=== PATIENT | male | born 1940 | race Caucasian/White ===

== ENCOUNTER → 2016-07-20 | Outpatient (CLI) | payer OTHER ==
[~2016-07-20] MED LIST: ALLO300T PO; AMLO5TAB2 PO; AMOX125T PO; ATEN100T PO; ATOR80TA75 PO; CHOL10002 PO; CYAN1TAB29 PO; DOCU240C53 PO; FURO40TA6 PO; GABA300C10 PO; GLIP2.5T16 PO; METF10002 PO; NORT25CA PO; OMEG1CAP12 PO; OXYC5CAP4 PO; WARF6TAB7 PO
== END | disposition home or self-care (01) ==
LOC: PETCFH 11:10
PROVIDERS: ATTEND Internal Medicine
DX: C44.320 Squamous cell carcinoma of skin of unspecified parts of face (principal); I71.4 Abdominal aortic aneurysm, without rupture; K82.8 Other specified diseases of gallbladder; I70.0 Atherosclerosis of aorta; N28.89 Other specified disorders of kidney and ureter; R91.8 Other nonspecific abnormal finding of lung field; G31.9 Degenerative disease of nervous system, unspecified; I51.7 Cardiomegaly
CPT/HCPCS: 78815; A9552